=== PATIENT | male | born 1945 | race Caucasian/White ===

== ENCOUNTER 2023-09-30 13:43 | Inpatient (IN) | payer OTHER, BC ==
[~2023-09-30] VITALS: Ht 180.3 cm; Wt 85.5 kg
[2023-09-30 13:49] VITALS: BP_SYST 142; PULSE 99; RESP 20; TEMP 103.1; O2SAT 93
[2023-09-30] MEDS: ACETAMINOPHEN 500 MG TABLET PO ONE (14:45)
[2023-09-30] MEDS: ONDANSETRON HCL 4 MG/2 ML VIAL IVP ONE (14:45)
[2023-09-30 14:52] LABS: ABG O2 SAT% ESTIMATE 95.2 % (94.0-100.0); ALLEN'S TEST POSITIVE (P); BLOOD GAS BASE EXCESS -2.2 mmol/L (-3.0-3.0); BLOOD GAS HCO3 20.2 mmol/L (21.0-27.0); BLOOD GAS PCO2 29.1 mmHg (32.0-45.0); BLOOD GAS PO2 70.5 mmHg (75.0-100.0)
[2023-09-30] MEDS: NACL 0.9% 1,000 ML IV ONE (15:09)
[2023-09-30 15:59] LABS: ANION GAP 17 (5-15); CALCIUM 9.9 mg/dL (8.4-11.0); CARBON DIOXIDE 25 mmol/L (23-29); CHLORIDE 97 mmol/L (98-107); CREATININE 3.73 mg/dL (0.55-1.30); GLUCOSE 344 mg/dL (74-106); POTASSIUM 3.4 mmol/L (3.5-5.1); SODIUM SERUM 139 mmol/L (136-145); UREA NITROGEN, BLOOD 45 mg/dL (8-21)
[2023-09-30 16:03] LABS: ALANINE AMINOTRANSFERASE 45 U/L (12-78); ALBUMIN 2.9 g/dL (3.4-4.8); ASPARTATE AMINOTRANSFERASE 29 U/L (10-37); BILIRUBIN,DIRECT 1.2 mg/dL (0.0-0.3); TOTAL PROTEIN, SERUM 7.8 g/dL (6.4-8.3)
[2023-09-30 16:22] LABS: BASOPHILS # (AUTO) 0.1 K/uL (0.0-0.2); BASOPHILS % (AUTO) 0.4 % (0.0-2.0); HEMATOCRIT 37.4 % (36-54); HEMOGLOBIN 12.7 g/dL (14.0-18.0); LYMPHOCYTES # (AUTO) 0.2 K/uL (1.0-5.5); LYMPHOCYTES % (AUTO) 1.2 % (20.5-51.5); MEAN CORPUSCULAR HEMOGLOBIN 33 pg (27-31); MEAN CORPUSCULAR HGB CONC 34 % (32-36); MEAN CORPUSCULAR VOLUME 96 fL (79.0-98.0); MONOCYTES # (AUTO) 0.1 K/uL (0.0-1.0); MONOCYTES % (AUTO) 0.6 % (1.7-9.3); NEUTROPHILS # (AUTO) 17.5 K/uL (1.8-7.7); NEUTROPHILS % (AUTO) 97.8 % (40.0-70.0); PLATELET COUNT (AUTO) 346 K/uL (130-430); RED CELL DISTRIBUTION WIDTH 14.8 % (9.0-15.0); WHITE BLOOD COUNT (AUTO) 17.9 K/uL (4.8-10.8)
[2023-09-30 17:04] LABS: INR 1.1 (0.80-1.20)
[2023-09-30 17:37] LABS: BILIRUBIN,URINE NEGATIVE (NEGATIVE); BLOOD, URINE 3+ (NEGATIVE); CLARITY/URINE TURBID (CLEAR); COLOR,URINE RED (YELLOW); GLUCOSE,URINE 3+ (NEGATIVE); KETONES,URINE NEGATIVE (NEGATIVE); LEUKOCYTE ESTERASE ,URINE 1+ (NEGATIVE); NITRITE, URINE NEGATIVE (NEGATIVE); PROTEIN URINE 2+ (NEGATIVE); UROBILINOGEN,URINE 0.2 (0.2-1.0)
[2023-09-30] MEDS: cefTRIAXone 1 GM IVPB PREMIX 50 ML IV ONE (17:48)
[2023-09-30] MEDS: IBUPROFEN 800 MG TABLET PO ONE (17:49)
[2023-09-30 18:17] LABS: BACTERIA,URINE MODERATE /HPF (None Seen); RBC,URINE >100 /HPF (0-3)
[2023-09-30 18:18] LABS: MUCUS,URINE None Seen /LPF (None Seen)
[2023-09-30 18:19] LABS: INFLUENZA TYPE A Negative (NEGATIVE); INFLUENZA TYPE B NEGATIVE (NEGATIVE)
[2023-09-30] MEDS ORDERED: ACETAMINOPHEN 325 MG TABLET PO PRN (21:00)
[2023-09-30] MEDS ORDERED: ONDANSETRON HCL 4 MG/2 ML VIAL IVP PRN (21:00)
[2023-09-30] MEDS ORDERED: NALOXONE HCL 0.4 MG/ML AMP (NARCAN) IVP PRN ×2 (21:00)
[2023-09-30] MEDS: NORMAL SALINE 5 ML DISP.SYRIN IVF SCH (22:01)
[2023-09-30 22:38] VITALS: BP_SYST 121; PULSE 64; RESP 18; TEMP 97.9; O2SAT 94
[2023-10-01] VITALS (7 sets, daily range): BP systolic 92–128; PULSE 62–71; RESP 17–19; TEMP 97.4–97.8; O2SAT 68–98
[2023-10-01] MEDS: ACETAMINOPHEN 325 MG TABLET PO PRN (00:25)
[2023-10-01 06:47] LABS: HEMATOCRIT 33.9 % (36-54); HEMOGLOBIN 11.3 g/dL (14.0-18.0); MEAN CORPUSCULAR HEMOGLOBIN 32 pg (27-31); MEAN CORPUSCULAR HGB CONC 33 % (32-36); MEAN CORPUSCULAR VOLUME 97 fL (79.0-98.0); PLATELET COUNT (AUTO) 238 K/uL (130-430); RED BLOOD CELL COUNT(AUTO) 3.49 MIL/uL (4.2-6.2); RED CELL DISTRIBUTION WIDTH 15.3 % (9.0-15.0); WHITE BLOOD COUNT (AUTO) 28.3 K/uL (4.8-10.8)
[2023-10-01 07:30] LABS: ANION GAP 12 (5-15); CALCIUM 9.6 mg/dL (8.4-11.0); CARBON DIOXIDE 28 mmol/L (23-29); CHLORIDE 97 mmol/L (98-107); CREATININE 4.44 mg/dL (0.55-1.30); GLUCOSE 334 mg/dL (74-106); PHOSPHORUS 4.2 mg/dL (2.7-4.5); SODIUM SERUM 137 mmol/L (136-145); UREA NITROGEN, BLOOD 57 mg/dL (8-21)
[2023-10-01 10:49] LABS: ATYPICAL LYMPHOCYTES % 1 % (0-0); BAND % (MANUAL) 26 % (0-6); BASOPHILS % (MANUAL) 0 % (0-2); EOSINOPHILS % (MANUAL) 0 % (0-7); LYMPHOCYTES % (MANUAL) 4 % (20-46); METAMYELOCYTES % 3 % (0-0); WBC MORPHOLOGY TOXIC GRANULATION
[2023-10-01 10:50] LABS: MONOCYTES % (MANUAL) 12 % (0-11)
[2023-10-01 10:51] LABS: PLATELET ESTIMATE ADEQUATE (ADEQUATE)
[2023-10-01] MEDS: HYDROcodone/ACETAMIN 5-325 MG TAB (NORCO/ VICODIN) PO PRN (11:10)
[2023-10-01] MEDS ORDERED: ACET325T PO (11:25)
[2023-10-01] MEDS ORDERED: LACT1CAP57 PO (11:25)
[2023-10-01] MEDS ORDERED: FURO-149 PO (11:25)
[2023-10-01] MEDS ORDERED: IPRA3AMP9 INH (11:25)
[2023-10-01] MEDS ORDERED: METO5TAB7 PO (11:25)
[2023-10-01] MEDS ORDERED: MIDO10TA PO (11:25)
[2023-10-01] MEDS ORDERED: MULT9LIQ6 PO (11:25)
[2023-10-01] MEDS ORDERED: SEVE800T8 PO (11:25)
[2023-10-01] MEDS ORDERED: HEPA500015 SUBCUT (11:25)
[2023-10-01] MEDS ORDERED: ASA81 PO (11:25)
[2023-10-01] MEDS ORDERED: FAMO-279 PO (11:25)
[2023-10-01] MEDS ORDERED: ONDA-8 TL (11:25)
[2023-10-01] MEDS ORDERED: FER300L PO (11:25)
[2023-10-01] MEDS ORDERED: SSNOVOLOG SUBCUT (11:25)
[2023-10-01] MEDS ORDERED: METO-442 PO (11:25)
[2023-10-01] MEDS ORDERED: LIP40 PO (11:25)
[2023-10-01] MEDS ORDERED: FERR-69 PO (13:52)
[2023-10-01] MEDS ORDERED: VITD2000 PO (13:52)
[2023-10-01] MEDS ORDERED: ONDA4TAB55 PO (13:52)
[2023-10-01] MEDS: VANCOMYCIN HCL 1,000 MG in NS 250 ML IV SCH (14:04)
[2023-10-01] MEDS ORDERED: MENTHOL/ZINC OXIDE 113 GM OINT. TP PRN (16:00)
[2023-10-01] MEDS ORDERED: cefTRIAXone 1 GM IVPB PREMIX 50 ML IV SCH (17:00)
[2023-10-01] MEDS: INSULIN REGULAR, HUMAN 100 UNITS/ML, 3 ML VIAL (humuLIN R) SUBCUT PRN (18:19)
[2023-10-01] MEDS ORDERED: PIPERACILLIN/TAZO 4.5 GM in D5W 100 ML IV SCH (21:00)
[2023-10-01] MEDS: BALSAM PERU/CASTOR OIL 56.7 GM OINT...G. TP ONE (22:10)
[2023-10-01] MEDS: PIPERACILLIN/TAZOBACTAM 3.375 GM/ D5W 50 ML IV SCH (22:10)
[2023-10-01] MEDS: LORazepam 2 MG/ML VIAL IVP PRN (23:23)
[2023-10-02] VITALS (7 sets, daily range): BP systolic 104–145; PULSE 69–78; RESP 16–19; TEMP 97.5–98.7; O2SAT 96–98
[2023-10-02 07:07] LABS: BASOPHILS % (AUTO) 0.2 % (0.0-2.0); EOSINOPHILS % (AUTO) 0.3 % (0.0-4.0); HEMATOCRIT 33.8 % (36-54); HEMOGLOBIN 11.5 g/dL (14.0-18.0); LYMPHOCYTES # (AUTO) 0.5 K/uL (1.0-5.5); LYMPHOCYTES % (AUTO) 4.3 % (20.5-51.5); MEAN CORPUSCULAR HEMOGLOBIN 33 pg (27-31); MEAN CORPUSCULAR HGB CONC 34 % (32-36); MEAN CORPUSCULAR VOLUME 96 fL (79.0-98.0); MONOCYTES # (AUTO) 1.5 K/uL (0.0-1.0); MONOCYTES % (AUTO) 12.5 % (1.7-9.3); NEUTROPHILS % (AUTO) 82.7 % (40.0-70.0); PLATELET COUNT (AUTO) 225 K/uL (130-430); RED BLOOD CELL COUNT(AUTO) 3.51 MIL/uL (4.2-6.2); RED CELL DISTRIBUTION WIDTH 15.6 % (9.0-15.0); WHITE BLOOD COUNT (AUTO) 12.1 K/uL (4.8-10.8)
[2023-10-02 07:12] LABS: ALANINE AMINOTRANSFERASE 24 U/L (12-78); ALBUMIN 2.1 g/dL (3.4-4.8); ANION GAP 13 (5-15); ASPARTATE AMINOTRANSFERASE 15 U/L (10-37); CALCIUM 9.7 mg/dL (8.4-11.0); CARBON DIOXIDE 26 mmol/L (23-29); CHLORIDE 97 mmol/L (98-107); CREATININE 5.53 mg/dL (0.55-1.30); GLUCOSE 193 mg/dL (74-106); POTASSIUM 4.6 mmol/L (3.5-5.1); SODIUM SERUM 136 mmol/L (136-145); TOTAL PROTEIN, SERUM 6.6 g/dL (6.4-8.3); UREA NITROGEN, BLOOD 77 mg/dL (8-21)
[2023-10-02 07:23] LABS: ERYTHROCYTE SEDIMENTATION RATE 62 MM/HR (0-15)
[2023-10-02] MEDS: BALSAM PERU/CASTOR OIL 56.7 GM OINT...G. TP SCH (09:00)
[2023-10-02] MEDS ORDERED: HEPARIN SODIUM,PORCINE 5,000 UNITS/ML VIAL MC ONE (13:30)
[2023-10-02] MEDS: HYDROcodone/ACETAMIN 10-325 MG TAB PO PRN (20:14)
[2023-10-02] MEDS: MEROPENEM 500 MG in NS 50 ML IV SCH (21:29)
[2023-10-03 00:16] VITALS: BP_SYST 112; PULSE 69; RESP 16; TEMP 98.7; O2SAT 96
[2023-10-03 08:03] LABS: ANION GAP 9 (5-15); CALCIUM 9.3 mg/dL (8.4-11.0); CARBON DIOXIDE 29 mmol/L (23-29); CHLORIDE 99 mmol/L (98-107); CREATININE 4.11 mg/dL (0.55-1.30); GLUCOSE 200 mg/dL (74-106); PHOSPHORUS 3.3 mg/dL (2.7-4.5); POTASSIUM 4.4 mmol/L (3.5-5.1); SODIUM SERUM 137 mmol/L (136-145); UREA NITROGEN, BLOOD 49 mg/dL (8-21)
[2023-10-03 08:14] VITALS: BP_SYST 145; PULSE 64; RESP 18; TEMP 96.6; O2SAT 99
[2023-10-03 08:28] LABS: BASOPHILS # (AUTO) 0.1 K/uL (0.0-0.2); BASOPHILS % (AUTO) 0.6 % (0.0-2.0); EOSINOPHILS # (AUTO) 0.4 K/uL (0.0-0.4); EOSINOPHILS % (AUTO) 3.9 % (0.0-4.0); HEMATOCRIT 32.1 % (36-54); LYMPHOCYTES % (AUTO) 10.4 % (20.5-51.5); MEAN CORPUSCULAR HEMOGLOBIN 33 pg (27-31); MEAN CORPUSCULAR HGB CONC 34 % (32-36); MEAN CORPUSCULAR VOLUME 96 fL (79.0-98.0); MONOCYTES # (AUTO) 2.4 K/uL (0.0-1.0); MONOCYTES % (AUTO) 25.8 % (1.7-9.3); NEUTROPHILS # (AUTO) 5.6 K/uL (1.8-7.7); NEUTROPHILS % (AUTO) 59.3 % (40.0-70.0); PLATELET COUNT (AUTO) 208 K/uL (130-430); RED BLOOD CELL COUNT(AUTO) 3.34 MIL/uL (4.2-6.2); RED CELL DISTRIBUTION WIDTH 15.4 % (9.0-15.0); WHITE BLOOD COUNT (AUTO) 9.4 K/uL (4.8-10.8)
[2023-10-03 08:47] LABS: ERYTHROCYTE SEDIMENTATION RATE 93 MM/HR (0-15)
[2023-10-03 11:13] VITALS: BP_SYST 157; PULSE 67; RESP 16; TEMP 97.3; O2SAT 100
[2023-10-03 15:02] VITALS: BP_SYST 157; PULSE 74; RESP 15; TEMP 96.7; O2SAT 95
[2023-10-03 20:00] VITALS: O2SAT 98
[2023-10-04 00:15] VITALS: BP_SYST 104; PULSE 70; RESP 17; TEMP 97.7; O2SAT 97
[2023-10-04 07:08] LABS: EOSINOPHILS # (AUTO) 0.4 K/uL (0.0-0.4); MEAN CORPUSCULAR HGB CONC 34 % (32-36); MONOCYTES # (AUTO) 2.7 K/uL (0.0-1.0); NEUTROPHILS # (AUTO) 5.2 K/uL (1.8-7.7); RED CELL DISTRIBUTION WIDTH 15.1 % (9.0-15.0); WHITE BLOOD COUNT (AUTO) 9.7 K/uL (4.8-10.8)
[2023-10-04 07:35] LABS: BASOPHILS % (AUTO) 0.4 % (0.0-2.0); EOSINOPHILS % (AUTO) 3.6 % (0.0-4.0); HEMATOCRIT 33.8 % (36-54); HEMOGLOBIN 11.4 g/dL (14.0-18.0); LYMPHOCYTES # (AUTO) 1.4 K/uL (1.0-5.5); LYMPHOCYTES % (AUTO) 14.6 % (20.5-51.5); MEAN CORPUSCULAR HEMOGLOBIN 33 pg (27-31); MEAN CORPUSCULAR VOLUME 97 fL (79.0-98.0); MONOCYTES % (AUTO) 27.8 % (1.7-9.3); NEUTROPHILS % (AUTO) 53.6 % (40.0-70.0); PLATELET COUNT (AUTO) 210 K/uL (130-430)
[2023-10-04 07:42] LABS: ANION GAP 11 (5-15); CALCIUM 9.3 mg/dL (8.4-11.0); CARBON DIOXIDE 28 mmol/L (23-29); CHLORIDE 98 mmol/L (98-107); CREATININE 5.02 mg/dL (0.55-1.30); GLUCOSE 192 mg/dL (74-106); POTASSIUM 4.2 mmol/L (3.5-5.1); SODIUM SERUM 137 mmol/L (136-145); UREA NITROGEN, BLOOD 67 mg/dL (8-21)
[2023-10-04 08:00] VITALS: BP_SYST 135; PULSE 75; RESP 18; TEMP 97.3; O2SAT 98; O2SAT 99
[2023-10-04 08:22] LABS: ERYTHROCYTE SEDIMENTATION RATE 103 MM/HR (0-15)
[2023-10-04 16:00] VITALS: BP_SYST 141; PULSE 80; RESP 20; TEMP 98.3; O2SAT 99
[2023-10-05 02:13] VITALS: BP_SYST 118; PULSE 68; RESP 18; TEMP 98; O2SAT 98
[2023-10-05 04:00] VITALS: BP_SYST 133; PULSE 67; RESP 16; TEMP 97.7; O2SAT 98
[2023-10-05 06:19] LABS: HEMATOCRIT 34.3 % (36-54); HEMOGLOBIN 11.7 g/dL (14.0-18.0); MEAN CORPUSCULAR HEMOGLOBIN 32 pg (27-31); MEAN CORPUSCULAR HGB CONC 34 % (32-36); MEAN CORPUSCULAR VOLUME 95 fL (79.0-98.0); PLATELET COUNT (AUTO) 237 K/uL (130-430); WHITE BLOOD COUNT (AUTO) 7.8 K/uL (4.8-10.8)
[2023-10-05 06:39] LABS: ERYTHROCYTE SEDIMENTATION RATE 120 MM/HR (0-15)
[2023-10-05 07:04] LABS: ALANINE AMINOTRANSFERASE 15 U/L (12-78); ALBUMIN 1.9 g/dL (3.4-4.8); ANION GAP 11 (5-15); ASPARTATE AMINOTRANSFERASE 8 U/L (10-37); CALCIUM 8.8 mg/dL (8.4-11.0); CARBON DIOXIDE 27 mmol/L (23-29); CHLORIDE 98 mmol/L (98-107); CREATININE 5.38 mg/dL (0.55-1.30); GLUCOSE 253 mg/dL (74-106); PHOSPHORUS 4.2 mg/dL (2.7-4.5); POTASSIUM 4.6 mmol/L (3.5-5.1); SODIUM SERUM 136 mmol/L (136-145); TOTAL BILIRUBIN 0.8 mg/dL (0.0-1.0); TOTAL PROTEIN, SERUM 6.5 g/dL (6.4-8.3); UREA NITROGEN, BLOOD 82 mg/dL (8-21)
[2023-10-05 07:57] LABS: ATYPICAL LYMPHOCYTES % 1 % (0-0); BAND % (MANUAL) 7 % (0-6); LYMPHOCYTES % (MANUAL) 18 % (20-46)
[2023-10-05 07:58] LABS: BASOPHILS % (MANUAL) 0 % (0-2); EOSINOPHILS % (MANUAL) 1 % (0-7); MONOCYTES % (MANUAL) 22 % (0-11); PLATELET ESTIMATE ADEQUATE (ADEQUATE)
[2023-10-05 08:00] VITALS: BP_SYST 138; PULSE 87; RESP 18; TEMP 97.3; O2SAT 98
[2023-10-05] MEDS ORDERED: MIDODRINE HCL 5 MG TABLET (PROAMATINE) PO SCH (09:00)
[2023-10-05] MEDS ORDERED: MINERALS PO SCH (09:15)
[2023-10-05] MEDS ORDERED: FERROUS FUM PO SCH (09:15)
[2023-10-05] MEDS ORDERED: MULTIVIT PO SCH (09:15)
[2023-10-05] MEDS: ASPIRIN 81 MG TAB.CHEW PO ONE (10:15)
[2023-10-05] MEDS: LACTOBACILLUS RHAMNOSUS GG 1 CAP CAPSULE PO ONE (10:15)
[2023-10-05] MEDS: CHOLECALCIFEROL (VITAMIN D3) 2,000 UNIT TABLET PO ONE (10:15)
[2023-10-05] MEDS: METOPROLOL TARTRATE 50 MG TABLET PO ONE (10:30)
[2023-10-05] MEDS: metOLazone 5 MG TABLET PO ONE (10:30)
[2023-10-05] MEDS: SEVELAMER CARBONATE 800 MG TABLET PO SCH (12:00)
[2023-10-05] MEDS ORDERED: HEPARIN SODIUM, PORCINE 10,000 UNITS/ 10 ML VIAL MC ONE (13:00)
[2023-10-05] MEDS: HEPARIN SODIUM, PORCINE 10,000 UNITS/ 10 ML VIAL ONE (13:10)
[2023-10-05] MEDS ORDERED: HEPARIN SODIUM,PORCINE 5,000 UNITS/ML VIAL SUBCUT SCH (14:00)
[2023-10-05] MEDS ORDERED: FERROUS SULFATE 325 MG TABLET.DR PO SCH (15:00)
[2023-10-05] MEDS ORDERED: NON-FORMULARY MEDICATION (Ferrous Sulfate 325 MG) PO SCH (15:00)
[2023-10-05] MEDS ORDERED: MERO500V23 IV (16:09)
[2023-10-05] MEDS ORDERED: ATORVASTATIN 20 MG TABLET PO SCH (21:00)
[2023-10-05] MEDS ORDERED: FUROSEMIDE 40 MG TABLET PO SCH (21:00)
[2023-10-06] MEDS ORDERED: ASPIRIN 81 MG TAB.CHEW PO SCH (09:00)
[2023-10-06] MEDS ORDERED: METOPROLOL TARTRATE 50 MG TABLET PO SCH (09:00)
[2023-10-06] MEDS ORDERED: MULTIVITAMINS TAB 1 TABLET PO SCH (09:00)
[2023-10-06] MEDS ORDERED: metOLazone 5 MG TABLET PO SCH (09:00)
[2023-10-06] MEDS ORDERED: CHOLECALCIFEROL (VITAMIN D3) 2,000 UNIT TABLET PO SCH (09:00)
[2023-10-06] MEDS ORDERED: LACTOBACILLUS RHAMNOSUS GG 1 CAP CAPSULE PO SCH (09:00)
[2023-10-07] MEDS ORDERED: NON-FORMULARY MEDICATION (Famotidine 20 MG) PO SCH (09:00)
[2023-10-07] MEDS ORDERED: FAMOTIDINE 20 MG TABLET PO SCH (09:00)
== END 2023-10-05 16:00 | DRG 871 ==
LOC: SED 13:43 → STU 18:03 → SMU 10-02 09:20
PROVIDERS: ADMIT Preventive Medicine Preventive Medicine/Occupational Environmental Medicine; ATTEND Preventive Medicine Preventive Medicine/Occupational Environmental Medicine
PROC: 5A1D70Z Performance of Urinary Filtration, Intermittent, Less than 6 Hours Per Day (ICD-10-PCS; principal; 2023-10-01)
PROC: 5A1D70Z Performance of Urinary Filtration, Intermittent, Less than 6 Hours Per Day (ICD-10-PCS; 2023-10-05)
DX: A41.51 Sepsis due to Escherichia coli [E. coli] (principal); N18.6 End stage renal disease; I12.0 Hypertensive chronic kidney disease with stage 5 chronic kidney disease or end stage renal disease; N17.9 Acute kidney failure, unspecified; N39.0 Urinary tract infection, site not specified; E87.20 Acidosis, unspecified; L97.419 Non-pressure chronic ulcer of right heel and midfoot with unspecified severity; E11.621 Type 2 diabetes mellitus with foot ulcer; E88.09 Other disorders of plasma-protein metabolism, not elsewhere classified; E11.65 Type 2 diabetes mellitus with hyperglycemia; E11.22 Type 2 diabetes mellitus with diabetic chronic kidney disease; E83.41 Hypermagnesemia; D63.1 Anemia in chronic kidney disease; F03.90 Unspecified dementia, unspecified severity, without behavioral disturbance, psychotic disturbance, mood disturbance, and anxiety; E11.40 Type 2 diabetes mellitus with diabetic neuropathy, unspecified; E87.6 Hypokalemia; E80.6 Other disorders of bilirubin metabolism; Z79.899 Other long term (current) drug therapy; Z99.2 Dependence on renal dialysis
CPT/HCPCS: 36415; 70450-TC; 71045; 80048; 80053; 80076; 81000; 81001; 81015; 82140; 82803; 82948; 83605; 83735; 84100; 85007; 85025; 85027; 85610; 85651; 85730; 87040; 87081; 87086; 87186; 90935; 90937; 93005; 97116-GP; 97163-GP; 97530-GP; 99291; G0378; J0696; J1644; J1815; J2060; J2185; J2405; J2543; J3370; J7050; J7060